=== PATIENT | male | born 1965 ===

== ENCOUNTER 2018-01-06 15:21 | Outpatient (CLI) | payer OTHER ==
[~2018-01-06 15:21] MED LIST: DICLOFENAC POTA50 MG PO; TIZANIDINE HCL2 MG PO
== END 2018-01-06 15:22 | disposition home or self-care (01) ==
LOC: LAB 15:21
DX: Q27.34 Arteriovenous malformation of renal vessel (principal)

== ENCOUNTER 2018-01-08 08:29 | Outpatient (CLI) | payer OTHER | END 2018-01-08 09:16 | disposition home or self-care (01) | LOC: MRI 08:29 | DX: Q27.34 Arteriovenous malformation of renal vessel (principal) | CPT/HCPCS: A9579; C8900; 74185 ==

== ENCOUNTER 2019-07-21 08:50 | Outpatient (CLI) | payer OTHER ==
[~2019-07-21 08:50] MED LIST changes: +TRAMADOL HCL50 MG PO
== END 2019-07-21 08:53 | disposition home or self-care (01) ==
LOC: RAD 08:50
DX: M79.645 Pain in left finger(s) (principal)

== ENCOUNTER 2019-07-24 13:33 | Outpatient (CLI) | payer OTHER | END 2019-07-24 13:37 | disposition home or self-care (01) | LOC: MRI 13:33 | DX: M54.2 Cervicalgia (principal) | CPT/HCPCS: 72141 ==

== ENCOUNTER 2019-08-07 11:26 | Outpatient (CLI) | payer OTHER | END 2019-08-07 11:34 | disposition home or self-care (01) | LOC: TOM 11:26 | DX: R68.84 Jaw pain (principal) ==

== ENCOUNTER 2020-01-18 09:52 | Outpatient (CLI) | payer OTHER ==
[2020-01-18] MEDS ORDERED: TRAMADOL HCL50 MG PO (12:31)
== END 2020-01-18 15:00 | disposition home or self-care (01) ==
LOC: LAB 09:52
PROVIDERS: ATTEND Physical Medicine & Rehabilitation
DX: Z20.828 Contact with and (suspected) exposure to other viral communicable diseases (principal); Z11.59 Encounter for screening for other viral diseases